=== PATIENT | female | born 1965 | race American Indian/Alaskan Native ===

== ENCOUNTER 2017-02-20 11:07 | Outpatient (CLI) | payer OTHER ==
--- NOTE | 2017-02-20 12:19 | XRay Report ---
Lumbar spine 3 views: X. History: Back pain. Findings: Normal height of vertebral bodies and intervertebral discs. Normal articular surfaces. No fracture. No soft tissue calcification. Impression: No bony or articular abnormality lumbar spine.
== END 2017-02-20 11:08 | disposition home or self-care (01) ==
LOC: XRAY 11:07
PROVIDERS: ATTEND Internal Medicine
DX: G89.29 Other chronic pain (principal); M54.5 Low back pain; J45.909 Unspecified asthma, uncomplicated; T78.3XXA Angioneurotic edema, initial encounter; R07.9 Chest pain, unspecified
CPT/HCPCS: 72100